=== PATIENT | female | born 1980 | race Caucasian/White ===

== ENCOUNTER 2018-01-11 12:18 | Emergency (ER) | payer OTHER ==
[2018-01-11 12:32] VITALS: RESP 18; O2SAT 100
[2018-01-11] MEDS ORDERED: Sodium Chloride 0.9% 1,000 ML IV ONE (13:33)
--- NOTE | 2018-01-11 14:07 | C.PDOC ---
History Of Present Illness 37 y/o female A2 presents to ED with complaints of vague anterior chest wall discomfort reproducible with movement of left arm for 3 hours. 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 Patient also complaints of nasal congestion and dizziness, denies fever, chills, cough, chest pain, headache or any other complaints at this time. Time Seen by Provider: 01/11/18 13:29 Chief Complaint (Nursing): Dizziness/Lightheaded History Per: Patient History/Exam Limitations: no limitations Onset/Duration Of Symptoms: Hrs Past Medical History Reviewed: Historical Data, Nursing Documentation, Vital Signs Vital Signs: Last Vital Signs Temp 97.9 F 01/11/18 12:29 Pulse 67 01/11/18 12:29 Resp 18 01/11/18 12:29 BP 95/69 L 01/11/18 12:29 Pulse Ox 100 01/11/18 14:17 - Medical History PMH: No Chronic Diseases Surgical History: No Surg Hx Family History: States: No Known Family Hx - Social History Hx Tobacco Use: No Hx Alcohol Use: No Hx Substance Use: No - Immunization History Hx Tetanus Toxoid Vaccination: No Hx Influenza Vaccination: No Hx Pneumococcal Vaccination: No Review Of Systems Constitutional: Negative for: Fever, Chills ENT: Positive for: Nose Congestion Cardiovascular: Positive for: Chest Pain Gastrointestinal: Negative for: Nausea, Vomiting Musculoskeletal: Positive for: Arm Pain Skin: Negative for: Rash Physical Exam - Physical Exam Appears: Non-toxic, No Acute Distress Skin: Warm, Dry, No Rash Head: Atraumatic, Normacephalic Eye(s): bilateral: Normal Inspection Oral Mucosa: Moist Neck: Normal ROM, Supple Chest: Tenderness (Bilateral parasternal) Cardiovascular: Rhythm Regular Respiratory: Normal Breath Sounds, No Rales, No Rhonchi, No Wheezing Gastrointestinal/Abdominal: Soft, No Tenderness, No Guarding, No Rebound Extremity: Normal ROM, No Pedal Edema, Capillary Refill (<2 seconds) ED Course And Treatment - Laboratory Results Result Diagrams: 01/11/18 14:44 01/11/18 14:44 Lab Interpretation: Normal (trop neg.) Urine POC: Negative ECG: Interpreted By Me, Viewed By Me ECG Rhythm: Sinus Rhythm Rate From EC (BPM) O2 Sat by Pulse Oximetry: 100 (RA) Pulse Ox Interpretation: Normal - Radiology CXR: Interpreted by Me CXR Interpretation: Yes: No Acute Disease Medical Decision Making Medical Decision Making: digitally and positionally reproducable discomfort parasternal lifting kids all day and normal w/u preg neg. Disposition Doctor Will See Patient In The: Office Counseled Patient/Family Regarding: Studies Performed, Diagnosis - Disposition Disposition: HOME/ ROUTINE Disposition Time: 15:07 Condition: GOOD Forms: [employer] (Amharic) - Clinical Impression Clinical Impression: Anxiety, Chest wall discomfort - Scribe Statement The provider has reviewed the documentation as recorded by the Altagraciaibying Strauss All medical record entries made by the Altagraciaibying were at my direction and personally dictated by me. I have reviewed the chart and agree that the record accurately reflects my personal performance of the history, physical exam, medical decision making, and the department course for this patient. I have also personally directed, reviewed, and agree with the discharge instructions and disposition.
[2018-01-11 14:13] LABS: HCG,QUALITATIVE URINE NEGATIVE (NEGATIVE)
[2018-01-11 14:15] LABS: SQUAMOUS EPITHIAL 3 /hpf (0-5); URINE BACTERIA RARE (<OCC); URINE BILIRUBIN NEGATIVE (NEGATIVE); URINE BLOOD NEGATIVE (NEGATIVE); URINE CLARITY Clear (Clear); URINE COLOR Yellow (YELLOW); URINE GLUCOSE (UA) NORMAL (Normal); URINE LEUKOCYTE ESTERASE 2+ Leu/uL (Negative); URINE PROTEIN NEGATIVE (NEGATIVE); URINE UROBILINOGEN NORMAL mg/dL (0.2-1.0)
[2018-01-11] MEDS ORDERED: Sodium Chloride 0.9% 1,000 ML ONE (14:29)
[2018-01-11 14:52] LABS: BASO % 0.5 % (0.0-2.0); EOS # 0.1 K/uL (0.0-0.7); HEMOGLOBIN 13.1 g/dL (11.0-16.0); LYMPH % 30.9 % (20.0-40.0); MEAN CELL VOLUME 91.6 fL (81.0-99.0); MEAN CORPUSCULAR HGB CONC 33.8 g/dL (33.0-37.0); MEAN PLATELET VOLUME 8.2 fL (7.2-11.7); MONO # 0.4 K/uL (0.0-0.8); MONO % 6.7 % (0.0-10.0); NEUT # 3.9 K/uL (1.8-7.0); NEUT % 59.9 % (50.0-75.0); RBC 4.23 Mil/uL (3.80-5.20); RED CELL DISTRIBUTION WIDTH 13.8 % (11.5-14.5); WHITE BLOOD COUNT 6.5 K/uL (4.8-10.8)
--- NOTE | 2018-01-11 14:56 | RAD ---
HISTORY: Shortness of breath. COMPARISON: No prior. TECHNIQUE: Chest PA and lateral FINDINGS: LUNGS: No active pulmonary disease. PLEURA: No significant pleural effusion identified. No pneumothorax apparent. CARDIOVASCULAR: No radiographic findings to suggest acute or significant cardiovascular disease. OSSEOUS STRUCTURES: No significant abnormalities. VISUALIZED UPPER ABDOMEN: Normal. OTHER FINDINGS: None. IMPRESSION: No active disease.
[2018-01-11 14:59] LABS: ALBUMIN 4.2 g/dL (3.5-5.0); ALT/SGPT 16 U/L (9-52); AST/SGOT 18 U/L (14-36); BLOOD UREA NITROGEN 14 mg/dL (7-17); GFR AFRICAN-AMERICAN > 60; GFR NON-AFRICAN AMERICAN > 60
[2018-01-11 15:27] VITALS: BP 114/74; PULSE 68; TEMP 98.6
--- NOTE | 2018-01-12 13:25 | CARD ---
APPROVED REPORT EKG Measurement Heart [id number] SC 124P-9 [id number] <Conclusion> Normal sinus rhythm Normal ECG
== END 2018-01-11 15:32 | disposition home or self-care (01) ==
LOC: C.ER 12:18
DX: R07.89 Other chest pain (principal); F41.9 Anxiety disorder, unspecified
CPT/HCPCS: 71046; 80053; 81001; 82948; 84484; 84703; 85025; 93005; 96374; 99285; J1885; J7040

== ENCOUNTER 2018-06-22 06:30 | Emergency (ER) | payer OTHER ==
[2018-06-22 06:39] VITALS: BP 105/75; PULSE 73; RESP 20; TEMP 98.1; O2SAT 98
--- NOTE | 2018-06-22 09:39 | C.PDOC ---
History Of Present Illness 38-year-old female, presents to the emergency department c/o diffuse back pain over the past several days. Patient states pain increases with movement. 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 She has 3 children at home which she is also lifting. Pt took a Motrin last night wuth minimal relief, prompting visit. Patient denies any bladder/bowel incontinence, nausea/vomiting, numbness/weakness, or any other associated symptoms. No other complaints at this time. Chief Complaint (Nursing): Back Pain History Per: Patient History/Exam Limitations: no limitations Onset/Duration Of Symptoms: Days Current Symptoms Are (Timing): Still Present Past Medical History Reviewed: Historical Data, Nursing Documentation, Vital Signs Vital Signs: Last Vital Signs Temp 98.1 F 06/22/18 06:36 Pulse 73 06/22/18 06:36 Resp 20 06/22/18 06:36 BP 105/75 06/22/18 06:36 Pulse Ox 98 06/22/18 09:41 Family History: States: No Known Family Hx - Social History Hx Tobacco Use: No Hx Alcohol Use: No Hx Substance Use: No - Immunization History Hx Tetanus Toxoid Vaccination: No Hx Influenza Vaccination: No Hx Pneumococcal Vaccination: No Review Of Systems Constitutional: Negative for: Fever, Chills Genitourinary: Negative for: Incontinence Musculoskeletal: Positive for: Back Pain Neurological: Negative for: Weakness, Numbness Physical Exam - Physical Exam Appears: Non-toxic, No Acute Distress Skin: Warm, Dry, No Rash Head: Atraumatic, Normacephalic Eye(s): bilateral: Normal Inspection, PERRL, EOMI Nose: Normal Oral Mucosa: Moist Lips: Normal Appearing Neck: Normal ROM Cardiovascular: Rhythm Regular, No Murmur Respiratory: Normal Breath Sounds Back: Paraspinal Tenderness (diffuse) Extremity: Normal ROM, No Deformity Neurological/Psych: Oriented x3, Normal Speech ED Course And Treatment O2 Sat by Pulse Oximetry: 98 Pulse Ox Interpretation: Normal (RA) Disposition - Disposition Referrals: Kadie Martinez [Primary Care Provider] - Disposition: HOME/ ROUTINE Disposition Time: 07:15 Condition: GOOD Additional Instructions: JACKY HATFIELD, thank you for letting us take care of you today. Your provider was Sanjeev Church DO and you were treated for BACK PAIN. The emergency medical care you received today was directed at your acute symptoms. If you were prescribed any medication, please fill it and take as directed. It may take several days for your symptoms to resolve. Return to the Emergency Department if your symptoms worsen, do not improve, or if you have any other problems. Please contact your doctor or call one of the physicians/clinics you have been referred to that are listed on the Patient Visit Information form that is included in your discharge packet. Bring any paperwork you were given at discharge with you along with any medications you are taking to your follow up visit. Our treatment cannot replace ongoing medical care by a primary care provider outside of the emergency department. Thank you for allowing the [facility] team to be part of your care today. Follow up with your primary care doctor this week for re-evaluation and further management. Prescriptions: Cyclobenzaprine [Cyclobenzaprine HCl] 10 mg PO Q8 PRN #20 tab PRN Reason: Muscle Spasm Ibuprofen [Motrin] 600 mg PO Q6 PRN #20 tab PRN Reason: Pain, Moderate (4-7) Instructions: Low Back Pain (DC) Forms: [employer] (Arabic), Work Excuse - Clinical Impression Clinical Impression: Low back pain - Scribe Statement The provider has reviewed the documentation as recorded by the Scribe (Rohan Razo) Provider Attestation: All medical record entries made by the Scribe were at my direction and personally dictated by me. I have reviewed the chart and agree that the record accurately reflects my personal performance of the history, physical exam, medical decision making, and the department course for this patient. I have also personally directed, reviewed, and agree with the discharge instructions and disposition.
== END 2018-06-22 07:28 | disposition home or self-care (01) ==
LOC: SUPCPDRO 06:30 → C.ER 06:30
DX: M54.5 Low back pain (principal)